=== PATIENT | male | born 1995 | race Caucasian/White ===

== ENCOUNTER 2016-08-07 15:14 | Emergency (ER) | payer SELFPAY ==
[~2016-08-07] VITALS: Ht 175.3 cm; Wt 71.4 kg
[2016-08-07 15:15] VITALS: Ht 175.3 cm; Wt 71.4 kg
[2016-08-07] MEDS ORDERED: HYDROXYZINE 50 MG/ML IM ONE (15:30)
[2016-08-07] MEDS ORDERED: HYDR-3841 PO (15:30)
--- OUTSIDE RECORDS SUMMARY | 2016-08-07 15:30 | XMS REPORT ---
Author Author Ayana Mosquera Organization [employer] Address Unknown Phone Unavailable Care Team Providers Care Faculty Research Assistant Name Role Phone Ayana Mosquera CP Unavailable Allergies, Adverse Reactions, Alerts Substance Reaction Event Type N.K.D.A. Info Not Available Non Drug Allergy Problems Problem Type Condition ICD-9 Code Onset Dates Condition Status Problem Other and unspecified noninfectious gastroenteritis and colitis 558.9 Active Problem Unspecified cellulitis and abscess of toe 681.10 Active Problem Dermatophytosis of foot 110.4 Active Assessment Abrasion of hand, left, infected 914.1 Active Problem Thoracic sprain and strain 847.1 Active Problem Unspecified sinusitis (chronic) 473.9 Active Problem Encounter for long-term (current) use of other medications V58.69 Active Problem Unspecified chronic bronchitis 491.9 Active Problem Dermatophytosis of nail 110.1 Active Problem Laboratory examination, unspecified V72.60 Active Problem Condyloma acuminatum 078.11 Active Medications Medication Code System Code Instructions Start Date End Date Status Dosage Cephalexin [facility] [address]-34 500 MG Orally twice a day August 24, 2014 September 03, 2014 1 tablet Procedures Procedure Coding System Code Date OFFICE VISIT EST PATIENT LEVEL 3 CPT-4 29908 August 24, 2014 Vital Signs Date/Time: August 24, 2014 BMI 23.02 Index Weight 151.4 lbs Height 68 in Blood Pressure Diastolic 72 mm Hg Blood Pressure Systolic 118 mm Hg Cardiac Monitoring Heart Rate 72 /min Temperature 99.2 F Respiratory Rate 18 /min Results No Known Results Summary Purpose [employer] Submission
--- OUTSIDE RECORDS SUMMARY | 2016-08-07 15:30 | XMS REPORT | Summary of Care ---
Author Author Gerard Zuniga M.D. Organization Unknown Address [address] [place], [place] [id number] Phone Unavailable Care Team Providers Care Gardening Supervisor Name Role Phone Efrain Stuart, S Unavailable Unavailable Gerard Zuniga PP Unavailable Unavailable Unavailable Functional Status Functional Status Health Issues* Name Dates Details Functional status health issues are not documented Status: Cognitive Status Health Issues* Name Dates Details Cognitive status health issues are not documented Status: Problems Name Dates Details Lower back pain (724.2, M54.5) Status: Active Pain in hand (729.5, M79.643) Status: Active Onychomycosis (110.1, B35.1) Status: Active Arthralgia of multiple sites (719.49, M25.50) Status: Active Sinusitis (473.9, J32.9) Status: Active Allergic rhinitis (477.9, J30.9) Status: Active Nausea with vomiting (787.01, R11.2) Status: Active Abnormal laboratory test result (796.4, R89.9) Status: Active Encounter for hearing examination (V72.19, Z01.10) Status: Active Medications Name Dates Details PredniSONE 20 MG Oral Tablet 1 tablet po daily Quantity: 2 Gerard Zuniga M.D.* Started 28-Dec-2013 ActiveLevofloxacin 500 MG Oral Tablet TAKE 1 TABLET DAILY DIRECTED. * Quantity: 7 Refills: 0 Gerard Zuniga M.D.* Started 28-Dec-2013 ActivePredniSONE 5 MG Oral Tablet TAKE 3 PO DAILY FOR 3 DAYS; THEN 2 PO DAILY FOR 3 DAYS; THEN 1 PO DAILY FOR THREE DAYS THEN OFF * Quantity: 18 Refills: 0 Gerard Zuniga M.D.* Started 07-Jan-2014 Active Allergies and Adverse Reactions Name Dates Details No Known Drug Allergies Status: Active Procedures Procedure Dates Details Procedures not documented Immunization Name Dates Details Immunizations not documented Family History Mother* Name Dates Details Family history of Leukemia (V16.6) Status: Active Family history of Marfan Syndrome Status: Active Sister* Name Dates Details Family history of Marfan Syndrome Status: Active Social History Name Dates Details Smoking Status* Never smoker Vital Signs Date Test Result Details No Known Vitals to report Results Date Description Value Details Results not documented Plan of Care Planned Observations* Name Dates Details Planned Goals not documented Goal Instructions * Instructions not documented Encounters Appointment; Brad Birmingham Encounter Diagnosis: Problem not documented On 13-Jan-2014 16:00 Appointment; Matt Khanna Encounter Diagnosis: Problem not documented On 13-Jan-2014 15:15 Appointment; Gerard Zuniga Encounter Diagnosis: Problem not documented On 07-Jan-2014 14:30 Appointment; Gerard Zuniga Encounter Diagnosis: Problem not documented On 07-Jan-2014 09:30 Appointment; Gerard Zuniga Encounter Diagnosis: Problem not documented On 28-Dec-2013 16:30 Appointment; Florencio Bronson Encounter Diagnosis: Problem not documented On 22-Dec-2013 16:00 Appointment; Gerard Zuniga Encounter Diagnosis: Problem not documented On 07-Dec-2012 14:45 Appointment; Gerard Zuniga Encounter Diagnosis: Problem not documented On 05-May-2012 15:15
--- OUTSIDE RECORDS SUMMARY | 2016-08-07 15:30 | XMS REPORT | Summary of Care ---
Author Author Matt Khanna Organization Unknown Address [address] [place], [place] [id number] Phone Unavailable Care Team Providers Care Full Stack Web Developer Name Role Phone Efrain Stuart, S Unavailable [...]
[2016-08-07] MEDS ORDERED: FLUO40CA7 PO (15:31)
--- OUTSIDE RECORDS SUMMARY | 2016-08-07 15:31 | XMS REPORT | Summary of Care ---
Author Author Gerard Zuniga M.D. Organization Unknown Address [address] [place], [place] [id number] Phone Unavailable Care Team Providers Care Human Geography Faculty Member Name Role Phone Efrain Stuart, S Unavailable Unavailable Gerard Zuniga PP Unavailable Unavailable Unavailable Functional Status Functional Status Health Issues* Name Dates Details Functional status health issues are not documented Status: Cognitive Status Health Issues* Name Dates Details Cognitive status health issues are not documented Status: Problems Name Dates Details Sinusitis (473.9, J32.9) Status: Active Allergic rhinitis (477.9, J30.9) Status: Active Nausea with vomiting (787.01, R11.2) Status: Active Abnormal laboratory test result (796.4, R89.9) Status: Active Encounter for hearing examination (V72.19, Z01.10) Status: Active Arthralgia of multiple sites (719.49, M25.50) Status: Active Onychomycosis (110.1, B35.1) Status: Active Pain in hand (729.5, M79.643) Status: Active Lower back pain (724.2, M54.5) Status: Active Medications Name Dates Details PredniSONE [...]
--- OUTSIDE RECORDS SUMMARY | 2016-08-07 15:31 | XMS REPORT | Summary of Care ---
Author Author Gerard Zuniga M.D. Organization Unknown Address [address] [place], [place] [id number] Phone Unavailable Care Team Providers Care Implementation Analyst Name Role Phone Efrain Stuart, S Unavailable [...] Mother* Name Dates Details Family history of Marfan Syndrome Status: Active Family history of Leukemia (V16.6) Status: Active Sister* Name Dates Details Family [...]
--- OUTSIDE RECORDS SUMMARY | 2016-08-07 15:31 | XMS REPORT | Summary of Care ---
Author Author Ayaan Lock M.D. Unknown Address Unknown Phone Unavailable Care Team Providers Care Die Maker Bench Stamping Name Role Phone Ayaan Lock M.D. Unavailable Unavailable Gerard Zuniga Unavailable Unavailable Unavailable Unavailable Functional Status Name Dates Details Functional status health issues are not documented Status: Name Dates Details Cognitive status health issues are not documented Status: Problems Name Dates Details Lower back pain (724.2, M54.5) Status: Active Pain in hand (729.5, M79.643) Status: Active Onychomycosis (110.1, B35.1) Status: Active Arthralgia of multiple sites (719.49, M25.50) Status: Active Allergic rhinitis (477.9, J30.9) Status: Active Nausea with vomiting (787.01, R11.2) Status: Active Abnormal laboratory test result (796.4, R89.9) Status: Active Encounter for hearing examination (V72.19, Z01.10) Status: Active Leg swelling (729.81, M79.89) Status: Active Periostitis of ankle (730.37, M86.9) Status: Active Medications Name Dates Details PROzac 20 MG Oral Capsule * Start 01-Dec-2015 Active HydrOXYzine HCl - 25 MG Oral Tablet * Refills: 0 * Start 01-Dec-2015 Active Multi Vitamin Daily Oral Tablet * Refills: 0 * Start 01-Dec-2015 Active MethylPREDNISolone 4 MG Oral Tablet Therapy Pack Take as directed * Quantity: 1 Refills: 0 Ayaan Lock M.D. * Start 01-Dec-2015 Active Allergies and Adverse Reactions Name Dates Details No Known Drug Allergies (Allergy) Status: Active Procedures Procedure Dates Details Procedures not documented Immunization Name Dates Details Immunizations not documented Family History Name Dates Details Family history of Leukemia (V16.6) Status: Active Family history of Marfan Syndrome Status: Active Name Dates Details Family history of Marfan Syndrome Status: Active Social History Name Dates Details - Status: Name Dates Details Never smoker Vital Signs Date Test Result Details No Known Vitals to report Results Date Description Value Details Results not documented Plan of Care Name Dates Details Planned Observations Planned Goals not documented Interventions Provided Medication Changes* MethylPREDNISolone 4 MG Oral Tablet Therapy Pack - Start Instructions Name Dates Details Instructions not documented Encounters Appointment; Brad Birmingham D.O. Encounter Diagnosis: Problem not documented On 13-Jan-2014 16:00 Appointment; Matt Khanna Encounter Diagnosis: Problem not documented On 13-Jan-2014 15:15 Appointment; Gerard Zuniga M.D. Encounter Diagnosis: Problem not documented On 07-Jan-2014 14:30 Appointment; Gerard Zuniga M.D. Encounter Diagnosis: Problem not documented On 07-Jan-2014 09:30
--- NOTE | 2016-08-07 15:59 | ERPDOC ---
Departure Disposition Decision Date: August 07, 2016 Disposition Decision Time: 16:41 Disposition: 01 DISCHARGED HOME, SELF-CARE Impression Impression Impression: Primary Impression: Panic attack Additional Impression: Anxiety and depression Severity: Severe Condition: Improved Seen By: Physician only Referrals: YOUR PHYSICIAN Patient Instructions: Panic Attack (ED) Problems/Meds/Labs Reviewed?: Yes Medications reviewed and manag: Yes Additional Instructions: We have evaluated you for emergent causes of your symptoms and did not find them. You have had a classic panic attack. Continue taking your prozac as prescribed. Use the propranolol as needed for anxiety/panic. You may stop your hydroxyzine if it is not helping. Follow up with your doctor. Follow up care ordered?: Yes Mental Status: Alert, Oriented Scripts Propranolol HCl (Propranolol HCl) 10 Mg Tablet 10 MG PO Q6HPRN Y for ANXIETY, #60 TAB Take 1 tablet, by mouth, 2 times a day. Prov: JULYSTANLEY DO 08/07/16 HPI - Psychosocial General Chief Complaint: Psychiatric Problems Stated Complaint: DYSPNEA/ANXIETY Time Seen by MD: 15:16 Source: patient, EMS Exam Limitations: no limitations HPI - Psychosocial Initial Comments 21yo man presented to the ER by EMS for hyperventilation. Pt was in a group session at [employer]; he became emotional and dyspneic. Pt has not been taking his prescribed hydroxyzine for his anxiety. EMS was able to get pt calmed down several times (with resolution of his tachypnea, dyspnea, and panic sx), but he relapsed every time they started to unload him from their rig. Occurred At: other Onset: Rapid Duration: 1-3 hrs Severity: severe Associated Symptoms: anxiety, DENIES: impaired concentration, ingestion, injury , insomnia, suicidal ideation Hx of Similar Symptoms: Yes Allergies: Coded Allergies: No Known Drug Allergies (Verified Allergy, Unknown, 08/07/16) Past History Past Medical History Psychological: anxiety, depression, drug abuse Social History Smoking Status: Current every day smoker Substance Use Type: former substance user, marijuana Review of Systems Psychiatric Psychiatric: anxiety, depression, emotional instability, irritability, DENIES: suicidal ideation/attempt All other Systems All Other Systems: Reviewed and Negative Physical Exam General General Nourishment: well nourished, well developed, appears stated age, adult , thin, acute distress General Body Habitus: well groomed Vitals and Pain First Documented Vital Signs Date Time Temp Pulse Resp B/P Pulse Ox O2 Delivery O2 Flow Rate FiO2 08/07/16 15:15 98.5 75 18 123/71 96 Room Air Weight: Kilograms: 71.400 Height (feet): 5 Height (inches): 9.00 Triage Pain Scale: RN VS reviewed by Provider: Yes Normal Exams: Head: Normocephalic w/o trauma Eyes: Pupils are PERRLA w/ EOMI, No scleral icterus, irritation ENMT: No facial trauma, nasal exudates, pharyngeal erythema Neck: Full range of motion, without adenopathy, JVD Lymphatic: No lymphadenopathy Musculoskeletal: No tenderness, or deformity noted Integumentary: No rashes, hives, or bruising noted Neurologic: Patient is alert, and oriented Respiratory (brief) Respiratory: FOUND: clear all wan, equal bilaterally, symmetrical, NOT FOUND : rales, wheezes Cardiovascular (brief) Cardiac: FOUND: regular rhythm, NOT FOUND: click, gallop, murmur, pedal edema, peripheral edema, regular rate (Tachy), rub Capillary Refill: <2 sec Pulses: all distal extremities, equal, strong Abdomen (brief) Abdominal Brief: FOUND: bowel normo active x4, soft, NOT FOUND: distended, hepatosplenomegaly, pulsatile mass, tender Psychiatric (brief) Psychiatric Brief: FOUND: alert, oriented, NOT FOUND: normal affect (Anxious) Differential Diagnoses Considering: Anxiety, Borderline PD, Depression, Acute Psychosis, Suicidal Ideation Progress Results/Orders Orders Procedure Category Date Status Time Hydroxyzine (Vistaril) PHA 08/07/16 Complete 15:30 EKG EKG 08/07/16 Logged Propranolol (Inderal) PHA 08/07/16 Complete 16:15 Medications Current ED Medications Hydroxyzine HCl (Vistaril) 50 mg O ONCE IM Last administered on 08/07/16 15: 47; Start 08/07/16 at 15:30; Stop 08/07/16 at 15:31; Status DC Propranolol HCl (Inderal) 10 mg O ONCE PO Last administered on 08/07/16t 16:25 ; Start 08/07/16 at 16:15; Stop 08/07/16 at 16:16; Status DC Progress Progress 21yo man with long-standing anxiety d/o and depression. Pt had a classic panic attack earlier today. Is taking prozac, which will help with his baseline anxiety - hydroxyzine is not effective. Will give pt propranolol to block the effects of his anxiety. F/u with PCM. Pt voiced understanding of dx, prognosis, tx, and f/u need. EKG EKG : Rate: 60-100 Rhythm: sinus [place]: normal QRS: normal Intervals: normal ST/T: normal Interpreted by: signing physician STANLEY ROBERTSON DO August 07, 2016 15:59
[2016-08-07] MEDS ORDERED: PROPRANOLOL 10 MG TABLET PO ONE (16:15)
[2016-08-07] MEDS ORDERED: PROP10TA10 PO (16:44)
[2016-08-07 16:58] VITALS: BP 123/71; PULSE 75; RESP 18; TEMP 98.5; O2SAT 96
--- NOTE | 2016-08-07 16:58 | NUR ---
DEPART PT GIVEN DI FOR PANIC ATTACK, PROPRANOLOL, F/U. RX PROVIDED FOR PROPRANOLOL. VERBALIZES UNDERSTANDING. QUESTIONS ASKED/ANSWERED - DENIES FURTHER QUESTIONS/NEEDS AT THIS TIME. PERSONAL BELONGINGS GATHERED. PT AMBULATED/ESCORTED TO ED EXIT - GAIT STABLE, NO SIGN OF DISTRESS AT THIS TIME.
--- NOTE | 2016-08-08 09:24 | NUR ---
[facility] FOR PROPANOLOL. CONFIRMED, AIDED BY DR WIGGINS'S CLARIFICATION THAT MED TO BE DISPENSED 1 TAB QHR PRN.
== END 2016-08-07 16:58 | disposition home or self-care (01) ==
LOC: ED 15:14
DX: F41.0 Panic disorder [episodic paroxysmal anxiety] (principal); F41.8 Other specified anxiety disorders
CPT/HCPCS: 93005; 96372